=== PATIENT | female | born 1980 | race Two or more races ===

== ENCOUNTER 2020-04-04 15:40 | Inpatient (IN) | payer OTHER ==
[~2020-04-04] VITALS: Ht 167.6 cm; Wt 83.9 kg
[2020-04-12] MEDS ORDERED: MESTINON60 M1 PO (11:11)
[2020-04-12] MEDS ORDERED: CARAFATE1 GM PO (11:12)
[2020-04-12] MEDS ORDERED: PROTONIX40 MG PO (11:12)
[2020-04-12] MEDS ORDERED: ABATINEX680 MG PO (11:12)
[2020-04-12] MEDS ORDERED: ZYRTEC10 M3 PO (11:13)
[2020-04-23] MEDS ORDERED: PRILOSEC10 MG PO (16:13)
[2020-04-23] MEDS ORDERED: PERCOCET 5-3251 EACH PO (16:13)
[2020-04-23] MEDS ORDERED: POLY119PG PO (16:13)
== END 2020-04-23 17:22 | disposition home or self-care (01) | DRG 331 ==
LOC: O/R 04-19 07:00 → SURH 04-19 09:00
PROVIDERS: ADMIT Surgery; ATTEND Surgery
PROC: 0DJD8ZZ Inspection of Lower Intestinal Tract, Via Natural or Artificial Opening Endoscopic (ICD-10-PCS; 2020-04-19)
PROC: 0DTN4ZZ Resection of Sigmoid Colon, Percutaneous Endoscopic Approach (ICD-10-PCS; principal; 2020-04-19 16:30)
DX: K57.20 Diverticulitis of large intestine with perforation and abscess without bleeding (principal); G70.00 Myasthenia gravis without (acute) exacerbation

== ENCOUNTER → 2021-06-23 | Day surgery (SDC) | payer OTHER ==
[~2021-06-23] MED LIST: ABATINEX680 MG PO; CARAFATE1 GM PO; MESTINON60 M1 PO; PERCOCET 5-3251 EACH PO; POLY119PG PO; PRILOSEC10 MG PO; PROTONIX40 MG PO; ZYRTEC10 M3 PO
== END | disposition home or self-care (01) ==
LOC: ADM 06-18 13:30 → CIR.AMB 11:15
PROVIDERS: ATTEND Surgery
DX: K62.89 Other specified diseases of anus and rectum (principal); Z20.822 Contact with and (suspected) exposure to COVID-19